=== PATIENT | female | born 1960 | race Caucasian/White ===

== ENCOUNTER → 2018-08-04 08:42 | Outpatient (CLI) | payer OTHER, SELFPAY ==
[2018-08-04 11:19] LABS: Anion Gap 6 (5-15); BUN 18 mg/dL (7-18); BUN/Creat Ratio 24.8 RATIO (10-20); Calcium,Total 8.5 mg/dL (8.5-10.1); Chloride 104 mmol/L (98-107); Cholesterol 207 mg/dL (200); Creatinine, Serum 0.73 mg/dL (0.55-1.02); EST Glomerular Filtration Rate 88 mL/min (>60); Est Glom Filt Rate - Afr Amer 107 mL/min (>60); Free T3 2.5 pg/mL (2.18-3.98); Glucose 75 mg/dL (74-106); High Density Lipoprotein 71 mg/dL; Potassium 3.9 mmol/L (3.5-5.1); Sodium Level 140 mmol/L (136-145); T4 Free Direct 0.91 ng/dL (0.76-1.46); Thyroid Stim Hormone (TSH) 1.53 uIU/mL (0.358-3.74); Triglycerides 47 mg/dL; Very Low Density Lipoprotein 9 mg/dL (5-40)
== END ==
PROVIDERS: Family Provider Family Medicine; PCP Family Medicine; Visit Provider Family Medicine
DX: Z00.00 Encounter for general adult medical examination without abnormal findings (principal); Z13.220 Encounter for screening for lipoid disorders; Z13.29 Encounter for screening for other suspected endocrine disorder
CPT/HCPCS: 36415; 80048; 80061; 84439; 84443; 84481

== ENCOUNTER → 2019-10-20 08:38 | Outpatient (CLI) | payer OTHER, SELFPAY ==
[2019-10-20 10:38] LABS: BUN 24 mg/dL (7-18); BUN/Creat Ratio 32.1 RATIO (10-20); Calcium,Total 9.6 mg/dL (8.5-10.1); Cholesterol 236 mg/dL (200); Creatinine, Serum 0.75 mg/dL (0.55-1.02); EST Glomerular Filtration Rate 85 mL/min (>60); Est Glom Filt Rate - Afr Amer 103 mL/min (>60); Glucose 81 mg/dL (74-106); Triglycerides 44 mg/dL
[2019-10-20 10:39] LABS: Anion Gap 5 (5-15); Chloride 106 mmol/L (98-107); High Density Lipoprotein 84 mg/dL; Potassium 3.9 mmol/L (3.5-5.1); Sodium Level 139 mmol/L (136-145); Very Low Density Lipoprotein 9 mg/dL (5-40)
== END ==
PROVIDERS: Family Provider Family Medicine; PCP Family Medicine; Referring Provider Family Medicine; Visit Provider Family Medicine
DX: Z00.00 Encounter for general adult medical examination without abnormal findings (principal)
CPT/HCPCS: 36415; 80048; 80061

== ENCOUNTER → 2019-11-10 12:12 | Outpatient (CLI) | payer OTHER, SELFPAY ==
[2019-11-10 15:28] LABS: Thyroid Stim Hormone (TSH) 1.46 uIU/mL (0.358-3.74)
== END ==
PROVIDERS: PCP Family Medicine; Referring Provider Family Medicine; Visit Provider Family Medicine
DX: Z83.49 Family history of other endocrine, nutritional and metabolic diseases (principal)
CPT/HCPCS: 36415; 84443

== ENCOUNTER → 2020-07-05 | Outpatient (CLI) | payer OTHER, SELFPAY | END | disposition home or self-care (01) | LOC: LABSPEC 15:38 | PROVIDERS: PCP Family Medicine; Referring Provider Family Medicine; Visit Provider Family Medicine | DX: R31.9 Hematuria, unspecified (principal) | CPT/HCPCS: 87077; 87086; 87088; 87186 ==

== ENCOUNTER → 2020-07-27 | Outpatient (CLI) | payer OTHER, SELFPAY | END | disposition home or self-care (01) | PROVIDERS: PCP Family Medicine; Referring Provider Family Medicine; Visit Provider Family Medicine | DX: N39.0 Urinary tract infection, site not specified (principal) | CPT/HCPCS: 87086; 87088 ==

== ENCOUNTER → 2021-03-28 11:46 | Outpatient (CLI) | payer OTHER, SELFPAY | PROVIDERS: PCP Family Medicine; Referring Provider Family Medicine; Visit Provider Family Medicine | DX: U07.1 COVID-19 (principal) | CPT/HCPCS: 36415; 86769 ==

== ENCOUNTER → 2022-07-30 | Outpatient (CLI) | payer OTHER, SELFPAY ==
[2022-07-30 15:30] LABS: ALB/GLOB Ratio 1.1 RATIO (0.9-2.4); AST(SGOT) 24 U/L (15-37); Alanine Aminotransfer ALT/SGPT 23 U/L (13-56); Albumin, Serum 3.7 g/dL (3.2-5.0); Alkaline Phosphatase 65 U/L (45-117); Anion Gap 6 (5-15); BUN 18 mg/dL (7-18); BUN/Creat Ratio 23.2 RATIO (10-20); Calcium,Total 8.8 mg/dL (8.5-10.1); Chloride 103 mmol/L (98-107); Cholesterol 241 mg/dL (200); Creatinine, Serum 0.78 mg/dL (0.55-1.02); EST Glomerular Filtration Rate 80 mL/min (>60); Est Glom Filt Rate - Afr Amer 97 mL/min (>60); Globulin 3.5 g/dL (2.2-4.2); Glucose 73 mg/dL (74-106); High Density Lipoprotein 71 mg/dL; Protein, Total 7.2 g/dL (6.4-8.2); Sodium Level 140 mmol/L (136-145); Thyroid Stim Hormone (TSH) 1.73 uIU/mL (0.358-3.74); Triglycerides 108 mg/dL; Very Low Density Lipoprotein 22 mg/dL (5-40)
== END | disposition home or self-care (01) ==
LOC: MFPLAB 11:22
PROVIDERS: PCP Family Medicine; Referring Provider Family Medicine; Visit Provider Family Medicine
DX: Z00.00 Encounter for general adult medical examination without abnormal findings (principal); Z83.49 Family history of other endocrine, nutritional and metabolic diseases
CPT/HCPCS: 36415; 80053; 80061; 84443

== ENCOUNTER → 2022-09-20 | Outpatient (CLI) | payer OTHER, SELFPAY | END | disposition home or self-care (01) | PROVIDERS: PCP Family Medicine; Visit Provider Otolaryngology Otolaryngology/Facial Plastic Surgery | DX: G47.33 Obstructive sleep apnea (adult) (pediatric) (principal) | CPT/HCPCS: 95810 ==

== ENCOUNTER 2023-08-02 09:30 | Day surgery (SDC) | payer OTHER, SELFPAY ==
[2023-08-02 09:44] VITALS: BP 113/84; PULSE 105; RESP 16; TEMP 37.2; O2SAT 98; BMI 25.1
[2023-08-02] MEDS: Lactated Ringers 1,000 ML 15 ML IV (09:54)
--- NOTE | 2023-08-02 10:12 | HP.PCM_ITS ---
HPI - General General Date of Admission: 06/28/20 Date of Service: 08/02/23 Chief Complaint: Screening for intestinal cancer HPI Narrative PEYTON GONZALES, is a 62 F who presents who presents today for screening colonoscopy. Previous one was August 2012. Her brother had colon cancer at age 47. Her previous colonoscopy she was noted to have a tortuous colon. Fortunately she denies any bright red blood per rectum or melena. No abdominal pain. Her health otherwise is stable and good. [facility] Medical History (Updated 07/31/23 @ 09:34 by Gabrielle Hercules) Bowel perforation Se-Danlos syndrome Family hx of colon cancer History of cellulitis Hx of hemorrhoids Non-smoker Post-menopausal Sleep apnea Wears glasses Home Medications Oral appliance #1 ea 10/10/22 [Rx Last Taken Unknown] cholecalciferol (vitamin D3) 25 mcg (1,000 unit) capsule 25 mcg PO DAILY 10/10/22 [History Last Taken Unknown] folic acid 1 mg tablet 1 mg PO DAILY 10/10/22 [History Last Taken Unknown] multivitamin 1 tab PO DAILY 10/10/22 [History Last Taken Unknown] calcium carbonate 600 mg calcium (1,500 mg) tablet 600 mg PO DAILY 07/29/23 [History Last Taken Unknown] cetirizine 10 mg capsule (All Day Allergy (cetirizine)) 10 mg PO DAILY 07/29/23 [History Last Taken Unknown] Allergy/AdvReac Type Severity Reaction Status Date / Time blue dye Allergy Rash Verified 08/02/23 09:44 Family History (Updated 07/29/23 @ 15:52 by Tigist Mack) Brother Colon cancer, Onset Age: 47 Daughter Colon polyps, Onset Age: 21 Surgical History (Updated 07/29/23 @ 15:51 by Tigist Mack) Hx of colonoscopy Social History (Updated 07/29/23 @ 15:52 by Tigist Mack) household members: spouse current occupational status: employed Smoking Status: Never smoker ROS Constitutional Constitutional: Reports systems reviewed and no addt'l complaints, except as documented Cardiovascular Cardiovascular: Denies chest pain Respiratory/Chest Respiratory/Chest: Denies shortness of breath at rest Gastrointestinal Gastrointestinal: Denies abdominal pain, change in bowel habits, hematochezia or melena Vital Signs Vital Signs Vital Signs: 08/02/23 09:44 10/20/23 09:44 Temperature 98.9 F Temperature Source Temporal Pulse Rate 105 H Respiratory Rate 16 Respiratory Pattern Normal Blood Pressure 113/84 H Blood Pressure Mean 93 Blood Pressure Source Monitor Blood Pressure Position Semi-Fowlers Blood Pressure Location Left Arm Pulse Ox 98 Oxygen Delivery Method Room Air Weight Weight: 165 lb 5.547 oz Body Mass Index (BMI) 25.1 Physical Exam Const alert, oriented x3 and no apparent distress General Appearance: cooperative and comfortable Eyes General Eye: normal appearance of both eyes Neck General: normal visual inspection Chest inspection of chest normal Resp Effort and Inspection: able to speak in complete sentences and symmetric chest movement Auscultation: clear to auscultation bilaterally Cardio regular rate and regular rhythm GI soft to palpation, non-tender and non-distended Extremity no calf tenderness Neuro oriented x3 Psych thought process normal Assessment & Plan Assessment/Plan (1) Encounter for screening for malignant neoplasm of colon: PLAN: The patient presents today via open access for screening colonoscopy with possible biopsy or polypectomy as indicated. She is aware of the technique, benefit, risk, alternatives. We will proceed as noted. Robel Petty M.D., F.A.C.S.
--- NOTE | 2023-08-02 11:14 | OP.COLON_ITS ---
Patient Name: Bala Mcgowan Procedure Date: 08/02/2023 10:39 AM Date of : 1960 Age: 62 Procedure: Colonoscopy Indications: Screening for colorectal malignant neoplasm Providers: Robel Petty MD Medicines: See the Anesthesia note for documentation of the administered medications Patient Profile: Last Colonoscopy: August 2012. Complications: No immediate complications. Procedure: Pre-Anesthesia Assessment: - Prior to the procedure, a History and Physical was performed, and patient medications and allergies were reviewed. The patient's tolerance of previous anesthesia was also reviewed. The risks and benefits of the procedure and the sedation options and risks were discussed with the patient. All questions were answered, and informed consent was obtained. Prior Anticoagulants: The patient has taken no anticoagulant or antiplatelet agents. ASA Grade Assessment: II - A patient with mild systemic disease. After reviewing the risks and benefits, the patient was deemed in satisfactory condition to undergo the procedure. After I obtained informed consent, the scope was passed under direct vision. Throughout the procedure, the patient's blood pressure, pulse, and oxygen saturations were monitored continuously. The adult colonoscope was introduced through the anus and advanced to the cecum, identified by appendiceal orifice and ileocecal valve. The colonoscopy was performed with moderate difficulty due to a tortuous colon. Successful completion of the procedure was aided by applying abdominal pressure. The patient tolerated the procedure well. The quality of the bowel preparation was good. The ileocecal valve and the appendiceal orifice were photographed. Scope In: 10:47:53 AM Scope Withdrawal Time 0 hours 6 minutes 31 seconds Scope Out: 11:09:04 AM Total Procedure Duration Time 0 hours 21 minutes 11 seconds Findings: Hemorrhoids were found on perianal exam. Multiple diverticula were found in the sigmoid colon. The sigmoid colon was significantly tortuous. Advancing the scope required using manual pressure. The exam was otherwise without abnormality. Impression: - Hemorrhoids found on perianal exam. - Diverticulosis in the sigmoid colon. - Tortuous colon. - The examination was otherwise normal. - No specimens collected. Recommendation: - Discharge patient to home. - Resume previous diet. - Continue present medications. - Repeat colonoscopy in 10 years for screening purposes. Procedure Code(s): --- Professional --- 64883, Colonoscopy, flexible; diagnostic, including collection of specimen(s) by brushing or washing, when performed (separate procedure) Diagnosis Code(s): --- Professional --- Z12.11, Encounter for screening for malignant neoplasm of colon K64.9, Unspecified hemorrhoids K57.30, Diverticulosis of large intestine without perforation or abscess without bleeding Q43.8, Other specified congenital malformations of intestine CPT copyright 2021 [employer]. All rights reserved. The codes documented in this report are preliminary and upon life cycle assessment analyst review may be revised to meet current compliance requirements. Robel Petty MD 08/02/2023 11:13:43 AM This report has been signed electronically. Number of Addenda: 0 Note Initiated On: 08/02/2023 10:39 AM
--- NOTE | 2023-08-02 11:14 | OP.CCLET_ITS ---
08/02/2023 [address]ian Me[address]ia [address] [place] [address] Re : Colonoscopy procedure for Bala Mcgowan Dear Dr. Mejia This procedure was performed on Wednesday, August 02, 2023. My impressions and recommendations are as follows: Impressions : - Hemorrhoids found on perianal exam. - Diverticulosis in the sigmoid colon. - Tortuous colon. - The examination was otherwise normal. - No specimens collected. Recommendations : - Discharge patient to home. - Resume previous diet. - Continue present medications. - Repeat colonoscopy in 10 years for screening purposes. My findings are described in the full procedure note, which is enclosed. If I can be of further assistance, please feel free to contact me at Doctor phone number(s): Work: . Sincerely, Robel Petty MD 08/02/2023 11:13:43 AM This report has been signed electronically.
[2023-08-02 11:15] VITALS: BP 113/84; BP 119/78; PULSE 76; RESP 16; TEMP 36.3; O2SAT 99
[2023-08-02 11:20] VITALS: BP 113/84; BP 93/66; PULSE 77; RESP 16; O2SAT 100
[2023-08-02 11:24] VITALS: BP 113/84; BP 121/76; PULSE 70; RESP 16; O2SAT 100
[2023-08-02 11:28] VITALS: BP 113/84; BP 115/75; PULSE 82; RESP 16; TEMP 36.8; O2SAT 100
[2023-08-02 11:57] VITALS: BP 113/84
== END 2023-08-02 11:58 | disposition home or self-care (01) ==
LOC: EN 09:32 → AC 09:32
PROVIDERS: PCP Family Medicine; Referring Provider Surgery; Visit Provider Surgery
PROC: 0DJD8ZZ Inspection of Lower Intestinal Tract, Via Natural or Artificial Opening Endoscopic (ICD-10-PCS; CPT 45378; principal; 2023-08-02 10:40)
DX: Z12.11 Encounter for screening for malignant neoplasm of colon (principal); K64.9 Unspecified hemorrhoids; K57.30 Diverticulosis of large intestine without perforation or abscess without bleeding; Z80.0 Family history of malignant neoplasm of digestive organs
CPT/HCPCS: 45378; J7120; J2405

== ENCOUNTER → 2023-11-15 | Outpatient (CLI) | payer OTHER, SELFPAY ==
--- OUTSIDE RECORDS SUMMARY | 2023-11-15 18:04 | XMS RPT_ITS | CCD ---
Author Name Unknown Address [address] [place] [address] Organization [facility] Care Team Providers Care Staking Engineer Name Role Phone Mirian Mejia Primary Care Provider [phone] MIRIAN MEJIA Primary Care Unavailable CINDY SALAS Referring Unavailable MIRIAN MEJIA Primary Care Unavailable RENATA BLANCO Attending Unavailable Mirian Mejia Primary Care Provider Allergies Allergy Classification Reported Allergen(s) Allergy Type Date of Onset Reaction(s) Facility (4 sources) Amoxicillin; Translations: [AMOXICILLIN] Drug Allergy 5 [facility] Work Phone: (4 sources) Ciprofloxacin; Translations: [CIPROFLOXACIN] Drug Allergy [address] [facility] (4 sources) Pseudoephedrine; Translations: [PSEUDOEPHEDRINE HCL] Drug Allergy [address] [facility] Work Phone: (3 sources) Fabric softner [Other] Propensity to adverse reactions 7 [facility] Work Phone: (4 sources) Fd And C Blue No.1; Translations: [FD AND C BLUE NO.1] Propensity to adverse reactions 5 [facility] Work Phone: (1 source) OTHER; Translations: [OTHER] Propensity to adverse reactions (disorder) 7 [facility] Repository Medications Completed/Discontinued Medications Medication Drug Class(es) Dates Sig (Normalized) Sig (Original) calcium carbonate 1500 mg / cholecalciferol 200 unt oral tablet (3 sources) Vitamin D Start: 08-20-2005 CALCIUM 600 + D(3) 600 MG-200 UNIT TAB take 2 per day 0 08/20/2005 Active Problems Active Problems Problem Classification Problem Date Documented Date Episodic/Chronic Immunizations and screening for infectious disease (4 sources) Patient encounter status; Translations: [Encounter for screening for human papillomavirus (HPV)] Episodic Other screening for suspected conditions (not mental disorders or infectious disease) (2 sources) Breast finding ; Translations: [Inconclusive mammogram] Onset: 01-11-2023 Episodic Past or Other Problems Problem Classification Problem Date Documented Date Episodic/Chronic Other connective tissue disease (3 sources) Tendinitis; Translations: [Other specified enthesopathies of unspecified lower limb, excluding foot] Onset: 12-14-2013 12-14-2013 Episodic Varicose veins of lower extremity (3 sources) Varicose veins of lower extremity; Translations: [Varicose veins of bilateral lower extremities with other complications] Onset: 08-06-2005 08-06-2005 Episodic Results Test Name Value Interpretation Reference Range Facil ity Vital Signs Date Time Vital Sign Value Performing Clinician Abi lity 01-11-2023 09:51-0400 Body height 174 cm Renata Pravin MANAGER PRIVATE.LEASING MACHINE TENDER Work Phone: [facility] 01-11-2023 09:51-0400 Body weight 76.2 kg Renata Pravin MANAGER PRIVATE.LEASING MACHINE TENDER Work Phone: [facility] 01-11-2023 09:51-0400 Diastolic blood pressure 76 mm[Hg] Renata Pravin MANAGER PRIVATE.LEASING MACHINE TENDER Work Phone: [facility] 01-11-2023 09:51-0400 Systolic blood pressure 110 mm[Hg] Renata [place] MANAGER PRIVATE.LEASING MACHINE TENDER Work Phone: [facility] Encounters Encounter Date Encounter Type Care Provider Facility Start: 01-14-2023 Documentation procedure Mammog moreno Coordinator [facility] Start: 01-14-2023 Letter encounter Mammography Coordinator [facility] Department Start: 01-11-2023 End: 01-11-2023 ambulatory MIRIAN MEJIA Facility:[facility] Start: 01-11-2023 Encounter for gynecological examination (general) (routine) without abnormal findings MIRIAN MEJIA [facility] Start: 01-11-2023 End: 01-11-2023 Patient encounter procedure Renata Sherf MANAGER PRIVATE.LEASING MACHINE TENDER Work Phone: OB/Gynecology Procedures Date Procedure Procedure Detail Performing Clinician Start: 01-11-2023 ALESIA SCREENING W TOPHER Salas MD Work Phone: Start: 01-11-2023 Mammography Mammograph y Coordinator Start: 12-15-2021 Mammography Renata [facility] MANAGER PRIVATE.LEASING MACHINE TENDER Work Phone: Start: 09-12-2012 Colonoscopy Renata [facility] MANAGER PRIVATE.LEASING MACHINE TENDER Work Phone: Start: 08-07-2012 Lipid 1996 panel - S elayne or Plasma Screen Wstr Plan of Treatment Date Care Activity Detail Author Start: 12-10-2029 Urine microalbumin profile DTaP,Tdap,Td Vaccine (2 - Td or Tdap) [facility] Start: 01-12-2028 HPV Testing HPV Testing [facility] Start: 01-12-2028 Pap Testing Pap Testing [facility] Start: 01-12-[address] [facility] Start: 06-14-2023 Covid-19 Vaccine ( season) Covid-19 Vaccine () [facility] Start: 06-14-2023 Influenza vaccination Influenza Vaccine (#1) [facility] Start: 12-15-[address] [facility] Start: 10-30-2022 HPV TESTING HPV TESTING [facility] Start: 10-30-2022 PAP TESTING PAP TESTING [facility] Start: 10-14-2022 DEPRESSION ASSESSMENT DEPRESSION ASSESSMENT [facility] Start: 09-12-[address] [facility] Start: 09-12-2022 COLORECTAL CANCER SCREENING COLORECTAL CANCER SCREENING [facility] Start: 2022 RSV Vaccine (1 - 1-dose 60+ series) RSV Vaccine (1 - 1-dose 60+ series) [facility] Start: 08-07-2017 Lipid 1996 panel - Serum or Plasma Lipid Screening [facility] Start: 08-07-2017 L[address]ID SCREEN LIPID SCREEN [facility] Start: 08-07-2015 DIABETES SCREEN DIABETES SCREEN [facility] Start: 08-07-2015 Diabetes Screening Diabetes Screening [facility] Start: 2012 SHINGRIX VACCINE (1 of 2) SHINGRIX VACCINE (1 of 2) [facility] Start: 2007 COLOGUARD (FIT-DNA) COLOGUARD (FIT-DNA) [facility] Start: [address] COL[address]APHY [facility] Start: 2007 FECAL OCCULT BLOOD FECAL OCCULT BLOOD [facility] Start: [address] [facility] Start: 1981 Urine microalbumin profile DTAP,TDAP,TD (1 - Tdap) [facility] Start: 1980 HEPATITIS C SCREENING HEPATITIS C SCREENING [facility] Start: 1980 HIV SCREENING HIV SCREENING [facility] End: 02-10-2024 ALESIA SCREENING W TOPHER ALESIA SCREENING W TOPHER Radiology Routine Encounter for gynecological examination (general) (routine) without abnormal findings Encounter for screening mammogram for breast cancer Dense breast tissue 1 Occurrences starting 01/11/2023 until 02/10/2024 [facility] Work Phone: Immunizations Immunization Date Immunization Notes Care Provider Ravi garcia 07-26-2022 influenza virus vaccine, unspecified formulation Screen Wstr [facility] 09-21-2013 influenza virus vaccine, unspecified formulation Renata Pravin MANAGER PRIVATE.LEASING MACHINE TENDER Work Phone: [facility] 09-26-2009 novel [id number], all formulations Renata [place] MANAGER PRIVATE.LEASING MACHINE TENDER Work Phone: [facility] Work Phone: Payers Date Payer Category Payer Unknown [facility] PRE [employer] [id number] 2020-Present [phone] [address] [place] [address] PPO [id number] 2020 Unknown [id number] Social History Date Type Detail Facility Start: 07-11-2012 Tobacco smoking stat us AKIS Never smoked tobacco [facility] Work Phone: Start: 07-11-2012 Tobacco use and exposure Smokeless tobacco non-user 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 Start: 1960 Sex Assigned At Not on file [facility] Start: 01-11-2023 History of Social function [facility] Start: 01-11-2023 Tobacco use panel [facility] National Score (1-100), lower number is lower risk 59 [facility] Clinical Notes 07-11-2012 to 01-14-2023 Letter - Mammography Coordinator - 01/14/2023 9:39 AM Erika Blanco APRN.CNP - 01/11/2023 9:51 AM Janine Freitas RT(Prasanth) - 01/11/2023 9:10 AM EDT Note Date & Type Note Facility 01-14-2023 Miscellaneous Notes January 15, 2023 PID: [id number] Bala Mcgowan [address] [place] [address] Dear Ms. Mcgowan, We are pleased to inform you that the results of your recent breast imaging exam on 01/11/2023 are normal. Your mammogram demonstrates that you have dense breast tissue, which could hide abnormalities. Dense breast tissue, in and of itself, is a relatively common condition. Therefore, this information is not provided to cause undue concern; rather, it is to raise your awareness and promote discussion with your health care provider regarding the presence of dense breast tissue in addition to other risk factors. Early detection of cancer is very important. We also understand recommendations regarding breast cancer screening are controversial. Please discuss with your primary care provider which strategy is best for you and whether a mammogram is right for you. Your imaging studies and report will be kept on file at [facility] as part of your permanent medical record and are available for your continuing care. Thank you for allowing us to help in meeting your health care needs. Sincerely, Dr. Jimenez Interpreting Radiologist [facility] (Normal over 40) documented in this encounter [facility] 01-11-2023 Note HNO ID: [id number] Author: Renata Blanco APRN.LEASING MACHINE TENDER Service: ? Author Type: Nurse Practitioner Type: Progress Notes Filed: 01/11/2023 10:38 AM Note Text: Bala is a 62 year old who presents for an annual gynecologic exam without complaints. Postmenopausal: Yes HRT use: No. Last Pap: 11/06/2017 normal HPV: 11/04/2017 negative History of abnormal pap: No Last mammogram: 2022 pending History of abnormal mammogram: Yes callbacks benign Sexually active: Yes Pain with intercourse: No Postcoital bleeding: No OB History T2 L2 SAB2 IAB0 Ectopic0 Multiple0 Live Births0 Technician Anatomic Pathology History LMP: 05/28/2013, Postmenopausal Age at Menarche: Age at First : Age at Menopause: Technician Anatomic Pathology History Comments: Sexual Activity: Yes; Male; VASECTOMY Contraception: Surgical PAST MEDICAL HISTORY Diagnosis Date Asymptomatic varicose veins Ehler Danlos syndrome Irregular menstrual cycle Irregular periods Missed PMH - PAST MEDICAL HISTORY OF perforated uterus PAST SURGICAL HISTORY Procedure Laterality Date APPENDECTOMY DILATION AND CURETTAGE DXAND/THER NONOBSTETRIC Dilation AND curettage DILATION AND CURETTAGE DXAND/THER NONOBSTETRIC Dilation AND curettage/perferated uterus, small intestine with peritonitis OTHER removal of moles PAST SURGICAL HISTORY OF Repair Small Bowel Perforation with Exporatory Laparatomy TONSILLECTOMY PRIMARY/SECONDARY UNSPECIFIED ORAL SURGERY PROCEDURE, BY REPORT gum surgery FAMILY HISTORY Problem Relation Age of Onset Hypertension Mother Kidney Disease Mother Hypertension Father Thyroid Brother other (kalyn danlos syndrome) Daughter Diabetes Maternal Grandmother Heart Paternal Grandmother SOCIAL HISTORY Social History Tobacco Use Smoking status: Never Smokeless tobacco: Never Vaping Use Vaping Use: Never used Substance Use Topics Alcohol use: No Drug use: No REVIEW OF SYSTEMS Abdomen: No abdominal pain, nausea, vomiting, diarrhea, or constipation. No bloating, early satiety, indigestion, or increased flatulence. Bladder: No dysuria, gross hematuria, urinary frequency, urinary urgency, or incontinence Breast: No breast lumps, nipple d/c, overlying skin changes, redness or skin retraction Allergies and current medication updated:Yes EXAM: BP 110/76 Ht 5' 8.5 (1.74m) Wt 168 lb (76.2kg) LMP 05/28/2013 BMI 25.17 kg/(m2). GENERAL: pleasant, female in no apparent distress HEENT: Normocephalic, atraumatic, and no lesions NECK: Supple, full range of motion, no adenopathy, and thyroid normal DERMATOLOGY: Normal, without lesions, non-icteric, and non-hirsute BREAST: soft, non-tender, symmetric, no dominant mass, normal nipple-areolar complex, no lymphadenopathy, and no nipple discharge CHEST: Normal inspiratory effort ABDOMEN: soft, non-tender, and no masses PELVIC: external genitalia normal, normal Bartholin's glands, urethra, [place]'s glands, no vulvar lesions, no cervical lesions, physiologic discharge present, normal appearing perineal body and perianal region BIMANUAL: uterus normal size, shape and consistency, no adnexal masses, and non-tender RECTOVAGINAL: deferred. NEURO: alert and oriented x3,exam grossly non-focal EXTREMITIES: normal ASSESSMENT/PLAN: 1) Health maintenance: Pap done with HPV. Mammogram ordered Mammogram up to date Nutrition, exercise and routine health maintenance exams reviewed. Calcium/Vitamin D supplementation information provided. Colon cancer screening: patient to discuss with PCP due 2022 2) Follow up one year or sooner as needed Renata Blanco APRN.[facility] 01-11-2023 Note HNO ID: [id number] Author: RT Maricruz(Prasanth) Service: ? Author Type: Technologist Type: Progress Notes Filed: 01/11/2023 9:30 AM Note Text: Radiology Service Progress Note PATIENT NAME: Bala Mcgowan DATE OF SERVICE: January 11, 2023 TIME: 9:13 AM PATIENT IDENTITY VERIFICATION COMPLETED USING TWO (2) IDENTIFIERS: Name and Date of confirmed by patient verbally. FALL SCREENING: Has the patient had 2 falls in the last year or 1 fall with injury or currently using an Ambulatory Assistive Device (Walker, Cane, Wheelchair, Crutches, etc.)? No PATIENT GENDER DATA: Female. status: : No status: NO. PATIENT RELEVANT IMPLANT DATA REVIEWED: Not Applicable RADIOLOGY DEPARTMENT: Mammography PERIPHERAL IV DATA: Not applicable SIGNED BY: RT Maricruz(R) January 11, 2023 9:13 AM [facility] 01-11-2023 History of Presen t illness Narrative Bala is a 62 year old who presents for an annual gynecologic exam without complaints. Postmenopausal: Yes HRT use: No. Last Pap: 11/06/2017 normal HPV: 11/04/2017 negative History of abnormal pap: No Last mammogram: 2022 pending History of abnormal mammogram: Yes callbacks benign Sexually active: Yes Pain with intercourse: No Postcoital bleeding: No OB History T2 L2 SAB2 IAB0 Ectopic0 Multiple0 Live Births0 Technician Anatomic Pathology History LMP: 05/28/2013, Postmenopausal Age at Menarche: Age at First : Age at Menopause: Technician Anatomic Pathology History Comments: Sexual Activity: Yes; Male; VASECTOMY Contraception: Surgical PAST MEDICAL HISTORY Diagnosis Date Asymptomatic varicose veins Ehler Danlos syndrome Irregular menstrual cycle Irregular periods Missed PMH - PAST MEDICAL HISTORY OF perforated uterus PAST SURGICAL HISTORY Procedure Laterality Date APPENDECTOMY DILATION & CURETTAGE DX&/THER NONOBSTETRIC Dilation & curettage DILATION & CURETTAGE DX&/THER NONOBSTETRIC Dilation & curettage/perferated uterus, small intestine with peritonitis OTHER removal of moles PAST SURGICAL HISTORY OF Repair Small Bowel Perforation with Exporatory Laparatomy TONSILLECTOMY PRIMARY/SECONDARY <AGE 12 UNSPECIFIED ORAL SURGERY PROCEDURE, BY REPORT gum surgery FAMILY HISTORY Problem Relation Age of Onset Hypertension Mother Kidney Disease Mother Hypertension Father Thyroid Brother other (kalyn danlos syndrome) Daughter Diabetes Maternal Grandmother Heart Paternal Grandmother SOCIAL HISTORY Social History Tobacco Use Smoking status: Never Smokeless tobacco: Never Vaping Use Vaping Use: Never used Substance Use Topics Alcohol use: No Drug use: No REVIEW OF SYSTEMS Abdomen: No abdominal pain, nausea, vomiting, diarrhea, or constipation. No bloating, early satiety, indigestion, or increased flatulence. Bladder: No dysuria, gross hematuria, urinary frequency, urinary urgency, or incontinence Breast: No breast lumps, nipple d/c, overlying skin changes, redness or skin retraction Allergies and current medication updated:Yes EXAM: BP 110/76 Ht 5' 8.5 (1.74m) Wt 168 lb (76.2kg) LMP 05/28/2013 BMI 25.17 kg/(m^2). GENERAL: pleasant, female in no apparent distress HEENT: Normocephalic, atraumatic, and no lesions NECK: Supple, full range of motion, no adenopathy, and thyroid normal DERMATOLOGY: Normal, without lesions, non-icteric, and non-hirsute BREAST: soft, non-tender, symmetric, no dominant mass, normal nipple-areolar complex, no lymphadenopathy, and no nipple discharge CHEST: Normal inspiratory effort ABDOMEN: soft, non-tender, and no masses PELVIC: external genitalia normal, normal Bartholin's glands, urethra, [place]'s glands, no vulvar lesions, no cervical lesions, physiologic discharge present, normal appearing perineal body and perianal region BIMANUAL: uterus normal size, shape and consistency, no adnexal masses, and non-tender RECTOVAGINAL: deferred. NEURO: alert and oriented x3,exam grossly non-focal EXTREMITIES: normal ASSESSMENT/PLAN: 1) Health maintenance: Pap done with HPV. Mammogram ordered Mammogram up to date Nutrition, exercise and routine health maintenance exams reviewed. Calcium/Vitamin D supplementation information provided. Colon cancer screening: patient to discuss with PCP due 2022 2) Follow up one year or sooner as needed Renata Blanco APRN.CNP documented in this encounter [facility] 01-11-2023 History of Presen t illness Narrative Radiology Service Progress Note PATIENT NAME: Bala Mcgowan DATE OF SERVICE: January 11, 2023 TIME: 9:13 AM PATIENT IDENTITY VERIFICATION COMPLETED USING TWO (2) IDENTIFIERS: Name and Date of confirmed by patient verbally. FALL SCREENING: Has the patient had 2 falls in the last year or 1 fall with injury or currently using an Ambulatory Assistive Device (Walker, Cane, Wheelchair, Crutches, etc.)? No PATIENT GENDER DATA: Female. status: : No status: NO. PATIENT RELEVANT IMPLANT DATA REVIEWED: Not Applicable RADIOLOGY DEPARTMENT: Mammography PERIPHERAL IV DATA: Not applicable SIGNED BY: RT Maricruz(R) January 11, 2023 9:13 AM documented in this encounter [facility] documented as of this encounter (statuses as of 01/11/2023) [facility]09-[facility] History of Past illness Narrative* Problem Noted Date Resolved Date Irregular menstrual cycle 07/11/20122021 Abnormal mammogram, unspecified 10/29/2006 01/11/2023 documented as of this encounter (statuses as of 01/16/2023) [facility] History of Past illness Narrative* Problem Noted Date Diagnosed Date Resolved Date Irregular menstrual cycle 07/11/2012 Abnormal mammogram, unspecified 10/29/2006 01/11/2023 documented as of this encounter (statuses as of 08/18/2023) [facility] Encounter for gynecological examination (general) (routine) without abnormal findings- Primary Encounter for screening for human papillomavirus (HPV) Special screening examination for human papillomavirus (HPV) Pap smear for cervical cancer screening Screening for malignant neoplasm of the cervix Encounter for screening mammogram for breast cancer Dense breast tissue [facility] Diagnosis Encounter for gynecological examination (general) (routine) without abnormal findings Encounter for screening mammogram for breast cancer [facility] Diagnostic Procedure Only (Routine) - Pending Review Specialty Diagnoses / Procedures Referred By Racquel walker Referred To Contact [facility] Diagnoses Encounter for gynecological examination (general) (routine) without abnormal findings Encounter for screening mammogram for breast cancer Dense breast tissue Procedures ALESIA SCREENING W TOPHER SCREENING DIGITAL BREAST TOMOSYNTHESIS BI SCREENING MAMMOGRAPHY BI 2-VIEW BREAST INC Renata Bello APRN.CNP [address] [place] [address] [facility] [address] [place] [address] Referral ID Status Reason Start Date Expiration Date Visits Requested Visits Authorized [id number] Pending Review Auto-Generat ed Referral 01/11/2023 02/10/2024 1 1 [facility] Diagnostic Procedure Only (Routine) - Closed Specialty Diagnoses / Procedures Referred By Racquel walker Referred To Contact [facility] Diagnoses Encounter for gynecological examination (general) (routine) without abnormal findings Encounter for screening mammogram for breast cancer Procedures ALESIA SCREENING W TOPHER SCREENING DIGITAL BREAST TOMOSYNTHESIS BI SCREENING MAMMOGRAPHY BI 2-VIEW BREAST INC Cindy Figueroa MD [address] [place] [address] [facility] [address] [place] [address] Referral ID Status Reason Start Date Expiration Date V isits Requested Visits Authorized [id number] Closed Auto-Generate d Referral 12/15/2021 01/14/2023 1 1 [facility] for visit Narrative* Diagnostic Procedure Only (Routine) - Closed Specialty Diagnoses / Procedures Referred By Contac t Referred To Contact [facility] Diagnoses Encounter for gynecological examination (general) (routine) without abnormal findings Encounter for screening mammogram for breast cancer Procedures ALESIA SCREENING W TOPHER SCREENING DIGITAL BREAST TOMOSYNTHESIS BI SCREENING MAMMOGRAPHY BI 2-VIEW BREAST INC Cindy Figueroa MD [address] [place] [address] [facility] [address] [place] [address] Referral ID Status Reason Start Date Expiration Date V isits Requested Visits Authorized [id number] Closed Auto-Generate d Referral 12/15/2021 01/14/[address] [facility] Summary Purpose Family History No Family History Records Found Advance Directives No Advanced Directives Records Found Additional Source Comments Source Comments (unrecognize d section and content) In the event this informatio n is protected by the Federal Confidentiality of Alcohol and Drug Abuse Patient Records regulations: The Federal rules restrict any use of the information to criminally investigate or prosecute any alcohol or drug abuse patient.[facility] the event this information is protected by the Federal Confidentiality of Alcohol and Drug Abuse Patient Records regulations: The Federal rules restrict any use of the information to criminally investigate or prosecute any alcohol or drug abuse patient.[facility] the event this information is protected by the Federal Confidentiality of Alcohol and Drug Abuse Patient Records regulations: The Federal rules restrict any use of the information to criminally investigate or prosecute any alcohol or drug abuse patient.[facility] Reason for Visit (unrecogniz ed section and content) Care Teams (unrecognized sec tion and content) Staking Engineer Relationship Specialty Start Date End Date Mirian Mejia [address] [facility] [address] [place] [phone] PCP - General 03/28/04 Staking Engineer Relationship Specialty Start Date End Date Mirian Mejia [address] [facility] [address] [place] [phone] PCP - General 03/28/04 INFORMATION SOURCE (unrecogn ized section and content) FOR RECORDS PERTAINING TO PATIENTS WHO ARE OR HAVE BEEN ENROLLED IN A CHEMICAL DEPENDENCY/SUBSTANCEABUSE PROGRAM, SOME INFORMATION MAY BE OMITTED. This clinical summary was aggregated from multiple sources. Caution should be exercised in using it in the provision of clinical care. This summary normalizes information from multiple sources, and as a consequence, information in this document may materially change the coding, format and clinical context of patient data. In addition, data may be omitted in some cases. CLINICAL DECISIONS SHOULD BE BASED ON THE PRIMARY CLINICAL RECORDS. [facility]. provides no warranty or guarantee of the accuracy or completeness of information in this document.
[2023-11-15 18:46] LABS: Cholesterol 236 mg/dL (200); High Density Lipoprotein 65 mg/dL; Thyroid Stim Hormone (TSH) 1.53 uIU/mL (0.358-3.74); Triglycerides 127 mg/dL; Very Low Density Lipoprotein 25 mg/dL (5-40)
== END | disposition home or self-care (01) ==
LOC: MFPLAB 16:02
PROVIDERS: PCP Family Medicine; Visit Provider Family Medicine
DX: Z00.00 Encounter for general adult medical examination without abnormal findings (principal); Z83.49 Family history of other endocrine, nutritional and metabolic diseases
CPT/HCPCS: 36415; 80061; 84443

== ENCOUNTER → 2024-03-11 | Outpatient (CLI) | payer OTHER, SELFPAY ==
[2024-03-11 10:55] LABS: AST(SGOT) 21 U/L (15-37); Alanine Aminotransfer ALT/SGPT 26 U/L (13-56); Cholesterol 153 mg/dL (200); High Density Lipoprotein 63 mg/dL; Triglycerides 54 mg/dL; Very Low Density Lipoprotein 11 mg/dL (5-40)
== END | disposition home or self-care (01) ==
LOC: MFPLAB 08:54
PROVIDERS: PCP Family Medicine; Visit Provider Family Medicine
DX: E78.5 Hyperlipidemia, unspecified (principal)
CPT/HCPCS: 36415; 80061; 84450; 84460

== ENCOUNTER → 2025-01-08 | Outpatient (CLI) | payer OTHER, SELFPAY | END | disposition home or self-care (01) | LOC: LABSPEC 10:17 | PROVIDERS: PCP Family Medicine; Referring Provider Physician Assistant Surgical; Visit Provider Physician Assistant Surgical | DX: R30.0 Dysuria (principal) | CPT/HCPCS: 87077; 87086; 87088; 87186 ==

== ENCOUNTER → 2025-03-24 | Outpatient (CLI) | payer OTHER, SELFPAY ==
[2025-03-24 17:39] LABS: AST(SGOT) 24 U/L (<=31); Alanine Aminotransfer ALT/SGPT 18 U/L (<=34); Cholesterol 182 mg/dL (<=200); High Density Lipoprotein 75 mg/dL; Low Density Lipoprotein Calc. 94 mg/dL; Triglycerides 67 mg/dL; Very Low Density Lipoprotein 13 mg/dL (5-40); cholesterol:hdl ratio screen 2.44
== END | disposition home or self-care (01) ==
PROVIDERS: PCP Family Medicine; Referring Provider Family Medicine; Visit Provider Family Medicine
DX: E78.5 Hyperlipidemia, unspecified (principal); Z83.49 Family history of other endocrine, nutritional and metabolic diseases
CPT/HCPCS: 36415; 80061; 84443; 84450; 84460

== ENCOUNTER → 2025-09-02 | Outpatient (CLI) | payer OTHER, SELFPAY | END | disposition home or self-care (01) | LOC: LABSPEC 14:59 | PROVIDERS: PCP Family Medicine | DX: N39.0 Urinary tract infection, site not specified (principal) | CPT/HCPCS: 87086; 87088; 87186 ==